=== PATIENT | male | born 1935 | race Caucasian/White ===

== ENCOUNTER 2021-03-18 10:19 | Emergency (ER) | payer MEDICARE ==
[2021-03-18] MEDS ORDERED: HYDROcodone/Acetaminophen 5/325 mg Tablet ONE (11:53)
== END 2021-03-18 12:57 | disposition home or self-care (01) ==
LOC: ERS 10:19
DX: I10 Essential (primary) hypertension (principal); Z87.891 Personal history of nicotine dependence; Z79.82 Long term (current) use of aspirin; Z79.899 Other long term (current) drug therapy
CPT/HCPCS: 72192

== ENCOUNTER 2021-07-17 11:31 | Outpatient (CLI) | payer MEDICARE ==
[2021-07-17 12:41] LABS: Hemoglobin 13.5 g/dL (13.5-17.5); Mean Corpuscular HGB CONC 33.5 g/dL (32.0-36.0); Mean Corpuscular Hemoglobin 32.2 pg (27.0-33.0); Mean Corpuscular Volume 96.2 fl (81.2-95.1); Mean Platelet Volume 9.5 fl (7.4-10.4); Platelet Count 275 10x3/uL (150-450); RBC Distribution Width 12.4 % (11.5-14.5); Red Blood Cell (RBC) Count 4.19 10x6/uL (4.32-5.72); White Blood Cell (WBC) Count 8.4 10x3/uL (3.5-10.5)
[2021-07-17 12:52] LABS: PTT 27.6 sec (22.0-33.0); Prothrombin Time 11.1 sec (9.5-12.1)
[2021-07-17 22:50] LABS: SARS-CoV-2 PCR by NAA Not Detected (NotDetected)
== END 2021-07-17 11:32 | disposition home or self-care (01) ==
LOC: LABBT 11:31
PROVIDERS: ATTEND Neurological Surgery
DX: Z01.818 Encounter for other preprocedural examination (principal); M48.061 Spinal stenosis, lumbar region without neurogenic claudication; Z20.822 Contact with and (suspected) exposure to COVID-19
CPT/HCPCS: 85027; 85610; 85730; 93005; U0003; U0005; 93010

== ENCOUNTER 2021-07-20 10:30 | Inpatient (IN) | payer OTHER, MEDICARE ==
[2021-07-19 12:44] VITALS: BMI 26.6
[2021-07-20] MEDS ORDERED: Neomycin-Polymyxin 1 ML AMP ONE (10:34)
[2021-07-20] MEDS ORDERED: Thrombin 5000 UNITS/5 ML VIAL ONE (10:34)
[2021-07-20] MEDS ORDERED: Bupivacaine PF 0.5% 30 ML VIAL ONE (10:34)
[2021-07-20] MEDS ORDERED: EPINEPHrine 1 MG/ML AMP ONE (10:34)
[2021-07-20] MEDS ORDERED: Fentanyl 100 MCG/2 ML VIAL ONE ×3 (11:56→15:41)
[2021-07-20] MEDS ORDERED: ceFAZolin 2 GM/DEX 5% 100 ML BAG ONE (11:59)
[2021-07-20] MEDS ORDERED: Fentanyl 250 MCG/5 ML VIAL ONE (12:16)
[2021-07-20] MEDS ORDERED: PROPOFOL 200 MG/20 ML VIAL ONE (12:17)
[2021-07-20] MEDS ORDERED: Lidocaine 1% PF 5 ML VIAL ONE (12:17)
[2021-07-20] MEDS ORDERED: Rocuronium Bromide 10 MG/ML (10ML VIAL) ONE (12:17)
[2021-07-20] MEDS ORDERED: Glycopyrrolate 0.2 MG/ML 5 ML SYRINGE ONE (12:17)
[2021-07-20] MEDS ORDERED: PHENYLEPHRINE-NS 100 MCG/ML 10 ML SYRINGE ONE (12:17)
[2021-07-20] MEDS ORDERED: Ondansetron PF 4 MG/2 ML Vial ONE (12:17)
[2021-07-20] MEDS ORDERED: ePHEDrine 50 MG/ML VIAL ONE (12:17)
[2021-07-20] MEDS ORDERED: Dexamethasone 20 MG/5 ML VIAL ONE (12:17)
[2021-07-20] MEDS ORDERED: Rocuronium Bromide 50 MG/5 ML VIAL ONE (12:58)
[2021-07-20] MEDS ORDERED: Promethazine 25 MG TAB PO PRN (15:10)
[2021-07-20] MEDS ORDERED: diphenhydrAMINE 25 MG CAP PO PRN (15:10)
[2021-07-20] MEDS ORDERED: Acetaminophen/Codeine 30-300mg Tablet PO PRN (15:10)
[2021-07-20] MEDS ORDERED: HYDROcodone/Acetaminophen 10/325 mg Tablet PO PRN (15:10)
[2021-07-20] MEDS ORDERED: Ondansetron PF 4 MG/2 ML Vial IVP PRN (15:10)
[2021-07-20] MEDS ORDERED: Milk Of Magnesia 30 ML UDCUP PO PRN (15:10)
[2021-07-20] MEDS ORDERED: HYDROcodone/Acetaminophen 7.5/325 mg Tablet PO PRN (15:10)
[2021-07-20] MEDS ORDERED: Mag-Al 1200 mg/1200 mg/30 ML UDCUP PO PRN (15:10)
[2021-07-20] MEDS ORDERED: Acetaminophen 325 MG TAB PO PRN (15:10)
[2021-07-20] MEDS ORDERED: Bisacodyl 10 MG SUPP PR PRN (15:10)
[2021-07-20] MEDS ORDERED: Promethazine HCl 25 MG/ML VIAL IM PRN (15:24)
[2021-07-20] MEDS ORDERED: Ondansetron HCl/PF 4 MG/2 ML Vial IVP PRN (15:24)
[2021-07-20] MEDS ORDERED: Morphine Sulfate 2 MG/ML SYRINGE SLOW IVP PRN (15:24)
[2021-07-20] MEDS ORDERED: Promethazine HCl 25 MG/ML VIAL IVPB PRN (15:24)
[2021-07-20] MEDS ORDERED: Morphine 4 MG/ML VIAL SLOW IVP PRN (17:17)
[2021-07-20] MEDS: Sodium Chloride 0.9% 1,000 ML IV SCH (20:08)
[2021-07-20] MEDS: CEFAZOLIN 2 GM, Admixture Fee 1 EACH in Sodium Chloride 0.9% 100 ML IVPB SCH (21:37)
[2021-07-20] MEDS: tiZANidine HCl 4 MG TAB PO SCH (21:37)
[2021-07-20] MEDS: Losartan 25 MG TAB PO SCH (21:37)
[2021-07-21] MEDS ORDERED: Sodium Chloride 0.65% Nasal 44 ML BOT EA NARE PRN (00:20)
[2021-07-21] MEDS ORDERED: Cepastat Lozenges 1 LOZ PO PRN (00:21)
[2021-07-21] MEDS ORDERED: Melatonin 3 MG TAB PO SCH ×2 (01:15→21:00)
[2021-07-21] MEDS: CEFAZOLIN 2 GM, Admixture Fee 1 EACH in Sodium Chloride 0.9% 100 ML IVPB SCH (04:19)
[2021-07-21] MEDS: Sodium Chloride 0.9% 1,000 ML IV SCH (04:23)
[2021-07-21] MEDS ORDERED: RUTIN 500 MG PO SCH (09:00)
[2021-07-21] MEDS ORDERED: Multivit, Therapeutic 1 TAB PO SCH (09:00)
[2021-07-21] MEDS ORDERED: [UNRECOGNIZED DRUG - OTHER] PO SCH (09:00)
[2021-07-21] MEDS ORDERED: Non-Formulary Item 1 EACH (Vitamin D3/Vitamin K2 (Mk4) [K2 Plus D3 Tablet] 1 EACH Tablet) PO SCH (09:00)
[2021-07-21] MEDS ORDERED: ASCORBATE CALCIUM PO SCH (09:00)
[2021-07-21] MEDS ORDERED: BIOFLAVONOID PO SCH (09:00)
[2021-07-21] MEDS: Losartan 25 MG TAB PO SCH ×2 (09:56→10:00)
[2021-07-21] MEDS: tiZANidine HCl 4 MG TAB PO SCH ×2 (09:57→15:35)
[2021-07-21 16:08] VITALS: BP 118/60; TEMP 98.5
== END 2021-07-21 14:45 | DRG 517 ==
LOC: SDC 10:30 → SURG A 16:55
PROVIDERS: ADMIT Neurological Surgery; ATTEND Neurological Surgery
PROC: 01NB0ZZ Release Lumbar Nerve, Open Approach (ICD-10-PCS; principal; 2021-07-20)
DX: M48.062 Spinal stenosis, lumbar region with neurogenic claudication (principal); I10 Essential (primary) hypertension; Z85.038 Personal history of other malignant neoplasm of large intestine; S32.038G Other fracture of third lumbar vertebra, subsequent encounter for fracture with delayed healing; V89.0XXD Person injured in unspecified motor-vehicle accident, nontraffic, subsequent encounter
CPT/HCPCS: 76000; J0171; J0690; J1100; J2270; J2405; J2704; J3010; J3370; J3490; S0020

== ENCOUNTER 2021-08-20 19:32 | Inpatient (IN) | payer MEDICARE ==
[2021-08-20] MEDS ORDERED: Vancomycin 1 GM/200 ML BAG ONE (20:08)
[2021-08-20] MEDS ORDERED: Cefepime 2 GM VIAL ONE (20:08)
[2021-08-20 20:24] LABS: #Lymphocytes 0.2 thou/uL (1.20-3.40); #Monocytes 0.1 thou/uL (0.11-0.59); #Neutrophils 9.3 thou/uL (1.40-6.50); %Basophils 0.3 % (0.0-1.0); %Eosinophils 0.3 % (0.0-10.0); %Lymphocytes 1.7 % (21.0-51.0); %Monocytes 0.7 % (0.0-10.0); Hemoglobin 12.2 g/dL (14.0-18.0); Mean Corpuscular HGB CONC 34.6 g/dL (32.0-36.0); Mean Corpuscular Volume 98.2 fL (78.0-98.0); Mean Platelet Volume 6.8 fL (7.4-10.4); Platelet Count 177 thou/uL (130-400); RBC Distribution Width 11.8 % (11.5-14.5); Red Blood Cell (RBC) Count 3.59 mill/uL (4.70-6.10); White Blood Cell (WBC) Count 9.5 thou/uL (4.8-10.8)
[2021-08-20 20:45] LABS: ALT (SGPT) 19 U/L (8-55); AST (SGOT) 28 U/L (5-34); Alkaline Phosphatase 108 U/L (40-110); Anion Gap 15 mmol/L (10-20); BUN (Urea Nitrogen) 16 mg/dL (8.4-25.7); Bilirubin, Total 0.6 mg/dL (0.2-1.2); Calc. Creatinine Clearance 0 mL/min (70-130); Calcium 7.9 mg/dL (7.8-10.44); Carbon Dioxide 19 mmol/L (23-31); Chloride 104 mmol/L (98-107); Globulin 2.3 g/dL (2.4-3.5); Glucose 113 mg/dL (83-110); Potassium 3.8 mmol/L (3.5-5.1); Protein, Total 5.3 g/dL (5.8-8.1); Sodium 134 mmol/L (136-145)
[2021-08-20 20:48] LABS: INR-International Normal Ratio 1.4; PTT 36.2 sec (22.9-36.1); Prothrombin Time 17.1 sec (12.0-14.7)
[2021-08-20] MEDS ORDERED: Aspirin Chewable 81 MG TAB ONE ×2 (20:58)
[2021-08-20 21:06] LABS: CKMB 3.6 ng/mL (0-6.6)
[2021-08-20 21:09] LABS: Bilirubin Negative (Negative); Blood, Urine 3+ (Negative); Clarity Extra Turbid (Clear); Glucose, Urine (Dipstick) Normal (Negative); Ketone, Urine Negative (Negative); Leukocyte 500 Leu/uL (Negative); Nitrite 1+ (Negative); Protein, Urine (Dipstick) 70 mg/dL (Neg-Trace); Specific Gravity, Urine 1.015 (1.002-1.036); Squamous Epithelial None Seen HPF (0-3); Urobilinogen Normal mg/dL (Less than 2)
[2021-08-20 21:19] LABS: WBC/HPF Greater than 50 HPF (0-3)
[2021-08-20 21:21] LABS: Bacteria/HPF 2+ HPF (None Seen)
[2021-08-20 21:22] LABS: Sperm/HPF Rare HPF (None Seen)
[2021-08-20] MEDS ORDERED: Norepinephrine 8 MG in Dextrose 5% in Water 242 ML IVPB PRN (22:45)
[2021-08-20] MEDS ORDERED: Ondansetron PF 4 MG/2 ML Vial ONE (22:59)
[2021-08-20 23:05] LABS: Lactic Acid 2.3 mmol/L (0.5-2.2)
[2021-08-21 00:37] LABS: Troponin I 3.855 ng/mL (< 0.028)
[2021-08-21 01:39] LABS: SARS-CoV-2 NAA Rapid Test Not Detected (NotDetected)
[2021-08-21 02:07] VITALS: BMI 22.8
[2021-08-21] MEDS: Sodium Chloride 0.9% 1,000 ML IV SCH ×3 (02:48→17:58)
[2021-08-21 03:29] LABS: Critical Call Chem Troponin I RESULT DECREASING; Troponin I 3.745 ng/mL (< 0.028)
[2021-08-21] MEDS ORDERED: Acetaminophen 650 MG Suppository PR PRN (06:04)
[2021-08-21] MEDS ORDERED: Ondansetron ODT 4 MG TAB PO PRN (06:04)
[2021-08-21] MEDS ORDERED: Acetaminophen 325 MG TAB PO PRN (06:04)
[2021-08-21] MEDS ORDERED: Vancomycin HCl 1.25 GM in Sodium Chloride 0.9% 250 ML 300 ML IVPB SCH (06:05)
[2021-08-21] MEDS ORDERED: CEFEPIME IVPB PRN (06:41)
[2021-08-21 06:47] LABS: Hemoglobin 11.7 g/dL (14.0-18.0); Mean Corpuscular HGB CONC 33.1 g/dL (32.0-36.0); Mean Corpuscular Hemoglobin 32.6 pg (27.0-31.0); Mean Corpuscular Volume 98.7 fL (78.0-98.0); Mean Platelet Volume 7.3 fL (7.4-10.4); Platelet Count 223 thou/uL (130-400); RBC Distribution Width 11.9 % (11.5-14.5); Red Blood Cell (RBC) Count 3.58 mill/uL (4.70-6.10); White Blood Cell (WBC) Count 25.6 thou/uL (4.8-10.8)
[2021-08-21 06:52] LABS: Lactic Acid 1.7 mmol/L (0.5-2.2)
[2021-08-21 06:54] LABS: Anion Gap 11 mmol/L (10-20); BUN (Urea Nitrogen) 14 mg/dL (8.4-25.7); Calc. Creatinine Clearance 71 mL/min (70-130); Calcium 8.1 mg/dL (7.8-10.44); Carbon Dioxide 21 mmol/L (23-31); Chloride 105 mmol/L (98-107); Glucose 107 mg/dL (83-110); Potassium 3.9 mmol/L (3.5-5.1); Sodium 133 mmol/L (136-145)
[2021-08-21] MEDS ORDERED: Cefepime 2 GM in Sodium Chloride 0.9% 100 ML IVPB SCH (09:00)
[2021-08-21] MEDS: Enoxaparin Sodium 40 MG/0.4 ML SYRINGE SC SCH (09:21)
[2021-08-21 10:11] LABS: Band 47 % (5-11); Lymphocytes 2 % (21-51); MDiff Complete? YES; Metamyelocyte 6 % (0-0); Monocytes 5 % (0-10); Neutrophil 40 % (42-75); Platelet Morphology Comment Appears Adequate; Polychromasia SLIGHT = 2-3 cells (100X) (0-2/hpf)
[2021-08-21] MEDS: Lactated Ringer's 1,000 ML IV SCH ×2 (11:00→14:23)
[2021-08-21] MEDS: Ondansetron PF 4 MG/2 ML Vial IVP PRN ×2 (11:26→22:13)
[2021-08-21] MEDS ORDERED: Meropenem 1 GM in Sodium Chloride 0.9% 100 ML IVPB SCH ×2 (14:45→22:00)
[2021-08-21] MEDS ORDERED: MEROPENEM 1 GM/50 ML 1 GM in Premix Bag 1 BAG IVPB SCH ×2 (14:45→22:00)
[2021-08-21] MEDS: Midodrine HCl 5 MG TAB PO SCH ×2 (15:26→20:49)
[2021-08-21] MEDS ORDERED: Sodium Chloride 0.9% 1,000 ML IV SCH (17:30)
[2021-08-21] MEDS: Cefepime 2 GM in Sodium Chloride 0.9% 100 ML IVPB SCH (20:50)
[2021-08-21] MEDS ORDERED: Vancomycin 1 GM in Premix Bag 1 BAG IVPB SCH (21:00)
[2021-08-22] MEDS: Sodium Chloride 0.9% 1,000 ML IV SCH (03:47)
[2021-08-22 05:56] LABS: Hemoglobin 10.1 g/dL (14.0-18.0); Mean Corpuscular Hemoglobin 32.9 pg (27.0-31.0); Mean Corpuscular Volume 99.7 fL (78.0-98.0); Mean Platelet Volume 7.5 fL (7.4-10.4); Platelet Count 170 thou/uL (130-400); RBC Distribution Width 11.9 % (11.5-14.5); Red Blood Cell (RBC) Count 3.06 mill/uL (4.70-6.10); White Blood Cell (WBC) Count 17.3 thou/uL (4.8-10.8)
[2021-08-22 06:12] LABS: Anion Gap 8 mmol/L (10-20); BUN (Urea Nitrogen) 15 mg/dL (8.4-25.7); Calc. Creatinine Clearance 84 mL/min (70-130); Calcium 7.9 mg/dL (7.8-10.44); Carbon Dioxide 22 mmol/L (23-31); Chloride 104 mmol/L (98-107); Glucose 79 mg/dL (83-110); Potassium 3.6 mmol/L (3.5-5.1); Sodium 130 mmol/L (136-145)
[2021-08-22 06:16] LABS: Band 32 % (5-11); Eosinophils 2 % (0-10); Lymphocytes 6 % (21-51); MDiff Complete? YES; Monocytes 9 % (0-10); Neutrophil 51 % (42-75)
[2021-08-22] MEDS: Enoxaparin Sodium 40 MG/0.4 ML SYRINGE SC SCH (08:46)
[2021-08-22] MEDS: Midodrine HCl 5 MG TAB PO SCH ×3 (08:46→20:25)
[2021-08-22] MEDS: Cefepime 2 GM in Sodium Chloride 0.9% 100 ML IVPB SCH (08:46)
[2021-08-22] MEDS: Losartan 25 MG TAB PO SCH (20:25)
[2021-08-22] MEDS: Artificial Tear Sol 15 ML BOT EA EYE PRN (21:33)
[2021-08-23] MEDS: Enoxaparin Sodium 40 MG/0.4 ML SYRINGE SC SCH (10:14)
[2021-08-23] MEDS: Midodrine HCl 5 MG TAB PO SCH (10:15)
[2021-08-23] MEDS: Losartan 25 MG TAB PO SCH ×2 (10:15→20:05)
[2021-08-23] MEDS: Tamsulosin HCl 0.4 MG CAP PO SCH (10:16)
[2021-08-23 17:34] LABS: Mean Corpuscular HGB CONC 33.6 g/dL (32.0-36.0); Mean Corpuscular Hemoglobin 33.3 pg (27.0-31.0); Mean Corpuscular Volume 99.2 fL (78.0-98.0); Mean Platelet Volume 7.7 fL (7.4-10.4); Platelet Count 197 thou/uL (130-400); RBC Distribution Width 11.9 % (11.5-14.5); White Blood Cell (WBC) Count 13.3 thou/uL (4.8-10.8)
[2021-08-23 17:45] LABS: Anion Gap 10 mmol/L (10-20); BUN (Urea Nitrogen) 8 mg/dL (8.4-25.7); Calc. Creatinine Clearance 83 mL/min (70-130); Calcium 8.4 mg/dL (7.8-10.44); Carbon Dioxide 26 mmol/L (23-31); Chloride 101 mmol/L (98-107); Glucose 102 mg/dL (83-110); Potassium 3.7 mmol/L (3.5-5.1); Sodium 133 mmol/L (136-145)
[2021-08-23] MEDS: Artificial Tear Sol 15 ML BOT EA EYE PRN (20:00)
[2021-08-23 20:31] VITALS: TEMP 98.2
[2021-08-24 05:32] LABS: Hemoglobin 11.6 g/dL (14.0-18.0); Mean Corpuscular Hemoglobin 33.3 pg (27.0-31.0); Mean Corpuscular Volume 97.9 fL (78.0-98.0); Mean Platelet Volume 7.2 fL (7.4-10.4); Platelet Count 213 thou/uL (130-400); RBC Distribution Width 11.8 % (11.5-14.5); Red Blood Cell (RBC) Count 3.49 mill/uL (4.70-6.10); White Blood Cell (WBC) Count 10.3 thou/uL (4.8-10.8)
[2021-08-24 05:53] LABS: Anion Gap 10 mmol/L (10-20); BUN (Urea Nitrogen) 6 mg/dL (8.4-25.7); Calc. Creatinine Clearance 92 mL/min (70-130); Calcium 8.3 mg/dL (7.8-10.44); Carbon Dioxide 25 mmol/L (23-31); Chloride 104 mmol/L (98-107); Glucose 92 mg/dL (83-110); Potassium 3.2 mmol/L (3.5-5.1); Sodium 136 mmol/L (136-145)
[2021-08-24] MEDS ORDERED: Potassium Chloride 20 MEQ TAB PO SCH (08:30)
[2021-08-24 08:33] VITALS: BP 159/85
[2021-08-24] MEDS: Losartan 25 MG TAB PO SCH (08:37)
[2021-08-24] MEDS: Tamsulosin HCl 0.4 MG CAP PO SCH (08:37)
[2021-08-24] MEDS: Enoxaparin Sodium 40 MG/0.4 ML SYRINGE SC SCH (08:38)
== END 2021-08-24 20:40 | DRG 871 ==
LOC: ERS 19:32 → CCU 23:34 → MSONC 08-22 00:03
PROVIDERS: ADMIT Student in an Organized Health Care Education/Training Program; ATTEND Internal Medicine
PROC: 3E033XZ Introduction of Vasopressor into Peripheral Vein, Percutaneous Approach (ICD-10-PCS; principal; 2021-08-20)
PROC: 0T2BX0Z Change Drainage Device in Bladder, External Approach (ICD-10-PCS; 2021-08-22)
DX: A41.51 Sepsis due to Escherichia coli [E. coli] (principal); R65.21 Severe sepsis with septic shock; G93.41 Metabolic encephalopathy; N39.0 Urinary tract infection, site not specified; E87.1 Hypo-osmolality and hyponatremia; I50.22 Chronic systolic (congestive) heart failure; Z20.822 Contact with and (suspected) exposure to COVID-19; D53.9 Nutritional anemia, unspecified; N40.1 Benign prostatic hyperplasia with lower urinary tract symptoms; R33.8 Other retention of urine; I11.0 Hypertensive heart disease with heart failure; I08.1 Rheumatic disorders of both mitral and tricuspid valves; I09.89 Other specified rheumatic heart diseases; Z85.038 Personal history of other malignant neoplasm of large intestine; Z90.49 Acquired absence of other specified parts of digestive tract; Z79.82 Long term (current) use of aspirin; Z79.899 Other long term (current) drug therapy; Z87.891 Personal history of nicotine dependence
CPT/HCPCS: 36415; 36556; 51701; 71045; 80048; 80053; 81003; 81015; 82553; 83605; 84484; 85025; 85027; 85610; 85730; 87040; 87077; 87086; 87149; 87186; 93005; 93306; 94760; 96365; 96366; 96367; 96375; J0692; J1650; J2405; J3370; J3490; J7050; J7120; U0002

== ENCOUNTER 2022-01-17 08:29 | Outpatient (CLI) | payer MEDICARE | END 2022-01-17 08:30 | disposition home or self-care (01) | LOC: TBSIIMAG 08:29 | PROVIDERS: ATTEND Neurological Surgery | DX: M96.1 Postlaminectomy syndrome, not elsewhere classified (principal); M47.816 Spondylosis without myelopathy or radiculopathy, lumbar region; R93.7 Abnormal findings on diagnostic imaging of other parts of musculoskeletal system; Z98.890 Other specified postprocedural states | CPT/HCPCS: 72110; 72158 ==

== ENCOUNTER 2022-03-15 09:38 | Outpatient (CLI) | payer MEDICARE | END 2022-03-15 09:39 | disposition home or self-care (01) | LOC: BICMAMMO 09:38 | PROVIDERS: ATTEND Internal Medicine | DX: Z13.820 Encounter for screening for osteoporosis (principal); M81.0 Age-related osteoporosis without current pathological fracture | CPT/HCPCS: 77080 ==

== ENCOUNTER 2022-03-23 13:16 | Outpatient (CLI) | payer MEDICARE | END 2022-03-23 13:17 | disposition home or self-care (01) | LOC: BICCT 13:16 | PROVIDERS: ATTEND Anesthesiology Pain Medicine | DX: M48.54XA Collapsed vertebra, not elsewhere classified, thoracic region, initial encounter for fracture (principal); M51.34 Other intervertebral disc degeneration, thoracic region | CPT/HCPCS: 72128 ==

== ENCOUNTER 2022-06-27 09:24 | Emergency (ER) | payer MEDICARE ==
[2022-06-27] MEDS ORDERED: Morphine 4 MG/ML VIAL ONE (13:14)
[2022-06-27 16:07] LABS: Bilirubin Negative (Negative); Blood, Urine Negative (Negative); Clarity Clear (Clear); Glucose, Urine (Dipstick) Normal (Negative); Ketone, Urine Negative (Negative); Leukocyte Negative Leu/uL (Negative); Nitrite Negative (Negative); Protein, Urine (Dipstick) Negative (Neg-Trace); Specific Gravity, Urine 1.008 (1.002-1.036); Urobilinogen Normal mg/dL (Less than 2); pH, Urine 6.5 (5.0-9.0)
[2022-06-27 16:24] LABS: #Eosinphils 0.1 thou/uL (0.0-0.7); #Lymphocytes 1.4 thou/uL (1.20-3.40); #Monocytes 0.6 thou/uL (0.11-0.59); #Neutrophils 4.9 thou/uL (1.40-6.50); %Basophils 0.2 % (0.0-1.0); %Eosinophils 1.1 % (0.0-10.0); %Lymphocytes 19.5 % (21.0-51.0); %Monocytes 8.3 % (0.0-10.0); %Neutrophils 70.9 % (42.0-75.0); Hemoglobin 14.3 g/dL (14.0-18.0); Mean Corpuscular HGB CONC 32.6 g/dL (32.0-36.0); Mean Corpuscular Hemoglobin 33.9 pg (27.0-31.0); Mean Platelet Volume 6.4 fL (7.4-10.4); Platelet Count 286 thou/uL (130-400); RBC Distribution Width 11.8 % (11.5-14.5); Red Blood Cell (RBC) Count 4.22 mill/uL (4.70-6.10); White Blood Cell (WBC) Count 6.9 thou/uL (4.8-10.8)
[2022-06-27 16:46] LABS: ALT (SGPT) 9 U/L (8-55); AST (SGOT) 22 U/L (5-34); Albumin 4.1 g/dL (3.4-4.8); Alkaline Phosphatase 82 U/L (40-110); Anion Gap 13 mmol/L (10-20); BUN (Urea Nitrogen) 14 mg/dL (8.4-25.7); Bilirubin, Total 0.5 mg/dL (0.2-1.2); Calc. Creatinine Clearance 0 mL/min (70-130); Calcium 9.6 mg/dL (7.8-10.44); Carbon Dioxide 27 mmol/L (23-31); Chloride 98 mmol/L (98-107); Estimated GFR 87; Globulin 3.4 g/dL (2.4-3.5); Glucose 106 mg/dL (83-110); Potassium 4.6 mmol/L (3.5-5.1); Protein, Total 7.5 g/dL (5.8-8.1); Sodium 133 mmol/L (136-145)
== END 2022-06-27 20:35 | disposition home or self-care (01) ==
LOC: ERS 09:24
DX: S32.059A Unspecified fracture of fifth lumbar vertebra, initial encounter for closed fracture (principal); I10 Essential (primary) hypertension; Z87.891 Personal history of nicotine dependence; Z79.82 Long term (current) use of aspirin; Z79.899 Other long term (current) drug therapy; X58.XXXA Exposure to other specified factors, initial encounter
CPT/HCPCS: 36415; 72131; 72192; 80053; 81003; 85025; 96372; J2270

== ENCOUNTER 2022-08-23 11:01 | Outpatient (CLI) | payer MEDICARE | END 2022-08-23 11:02 | disposition home or self-care (01) | LOC: TBSIIMAG 11:01 | PROVIDERS: ATTEND Neurological Surgery | DX: M47.26 Other spondylosis with radiculopathy, lumbar region (principal); M47.27 Other spondylosis with radiculopathy, lumbosacral region; Z98.890 Other specified postprocedural states | CPT/HCPCS: 72148 ==

== ENCOUNTER 2024-05-29 20:42 | Inpatient (IN) | payer MEDICARE ==
[2024-05-29] MEDS ORDERED: Benzocaine 20% Spray 60 ML CAN ONE (21:06)
[2024-05-29] MEDS ORDERED: cefTRIAXone (ROCEPHIN) 1 GM VIAL ONE (22:09)
[2024-05-29 22:17] LABS: #Basophils Less than 0.03 10x3/uL (0.0-0.2); #Eosinphils Less than 0.03 10x3/uL (0.0-0.7); %Basophils 0.1 % (0.0-1.0); %Monocytes 8.8 % (0.0-10.0); %Neutrophils 87.5 % (42.0-75.0); Hematocrit 29.7 % (42.0-52.0); Mean Corpuscular HGB CONC 33.7 g/dL (32.0-36.0); Mean Corpuscular Hemoglobin 29.9 pg (27.0-31.0); Mean Corpuscular Volume 88.9 fL (78.0-98.0); Mean Platelet Volume 8.9 fL (7.4-10.4); Platelet Count 353 10x3/uL (130-400); RBC Distribution Width 15.7 % (11.5-14.5); Red Blood Cell (RBC) Count 3.34 mill/uL (4.70-6.10)
[2024-05-29 22:34] LABS: ALT (SGPT) 17 U/L (8-55); AST (SGOT) 32 U/L (5-34); Albumin 3.1 g/dL (3.4-4.8); Alkaline Phosphatase 82 U/L (40-110); Anion Gap 18 mmol/L (10-20); BUN (Urea Nitrogen) 52 mg/dL (8.4-25.7); Bilirubin, Total 0.9 mg/dL (0.2-1.2); Calc. Creatinine Clearance 0 mL/min (70-130); Calcium 8.6 mg/dL (7.8-10.44); Carbon Dioxide 26 mmol/L (23-31); Chloride 84 mmol/L (98-107); Estimated GFR 62; Glucose 136 mg/dL (83-110); Lipase 6 U/L (8-78); Potassium 4.9 mmol/L (3.5-5.1); Protein, Total 7.1 g/dL (5.8-8.1); Sodium 123 mmol/L (136-145)
[2024-05-29] MEDS ORDERED: Ondansetron ODT 4 MG TAB PO PRN (22:41)
[2024-05-29] MEDS ORDERED: Ondansetron PF 4 MG/2 ML Vial IVP PRN (22:41)
[2024-05-29] MEDS ORDERED: Ketorolac Tromethamine 30 MG (1 mL) VIAL ONE (23:28)
[2024-05-30] MEDS: Lactated Ringer's 1,000 ML IV SCH ×2 (00:03→09:48)
[2024-05-30 02:12] VITALS: BMI 21.4
[2024-05-30 04:10] LABS: #Basophils Less than 0.03 10x3/uL (0.0-0.2); #Eosinphils Less than 0.03 10x3/uL (0.0-0.7); %Basophils 0.1 % (0.0-1.0); %Monocytes 13.3 % (0.0-10.0); Hematocrit 28.8 % (42.0-52.0); Hemoglobin 9.3 g/dL (14.0-18.0); Mean Corpuscular HGB CONC 32.3 g/dL (32.0-36.0); Mean Corpuscular Hemoglobin 30.5 pg (27.0-31.0); Mean Corpuscular Volume 94.4 fL (78.0-98.0); Platelet Count 315 10x3/uL (130-400); RBC Distribution Width 15.9 % (11.5-14.5); Red Blood Cell (RBC) Count 3.05 mill/uL (4.70-6.10)
[2024-05-30 04:27] LABS: Anion Gap 17 mmol/L (10-20); BUN (Urea Nitrogen) 50 mg/dL (8.4-25.7); Calc. Creatinine Clearance 54 mL/min (70-130); Calcium 8.2 mg/dL (7.8-10.44); Carbon Dioxide 23 mmol/L (23-31); Chloride 89 mmol/L (98-107); Estimated GFR 83; Glucose 124 mg/dL (83-110); Potassium 4.6 mmol/L (3.5-5.1); Sodium 124 mmol/L (136-145)
[2024-05-30] MEDS: cefTRIAXone\\ROCEPHIN 1 GM in Sodium Chloride 0.9% 100 ML IVPB SCH (08:50)
[2024-05-30] MEDS: Enoxaparin 40 MG (0.4 mL) SYRINGE SC SCH (08:51)
[2024-05-30] MEDS: Doxycycline 100 MG CAP PO SCH (08:51)
[2024-05-30] MEDS: Famotidine/PF 20 mg/2ml Vial SLOW IVP SCH (08:52)
[2024-05-30] MEDS: Famotidine 20 MG TAB PO SCH (08:52)
[2024-05-30] MEDS: Sodium Chloride 0.9% 1,000 ML IV SCH (17:54)
[2024-05-30 22:00] LABS: Anion Gap 13 mmol/L (10-20); BUN (Urea Nitrogen) 29 mg/dL (8.4-25.7); Calc. Creatinine Clearance 67 mL/min (70-130); Calcium 7.7 mg/dL (7.8-10.44); Carbon Dioxide 25 mmol/L (23-31); Chloride 94 mmol/L (98-107); Estimated GFR 88; Glucose 106 mg/dL (83-110); Potassium 3.9 mmol/L (3.5-5.1); Sodium 128 mmol/L (136-145)
[2024-05-31] MEDS: Sodium Chloride 0.9% 1,000 ML IV SCH ×2 (00:34→11:30)
[2024-05-31] MEDS: Fleet Saline Enema 133 ML BOT PR SCH (08:29)
[2024-05-31] MEDS: Pantoprazole 40 MG VIAL IVP SCH (08:29)
[2024-05-31 09:08] LABS: #Basophils Less than 0.03 10x3/uL (0.0-0.2); #Eosinphils Less than 0.03 10x3/uL (0.0-0.7); %Basophils 0.1 % (0.0-1.0); %Eosinophils 0.3 % (0.0-10.0); %Lymphocytes 10.9 % (21.0-51.0); %Monocytes 9.4 % (0.0-10.0); %Neutrophils 77.1 % (42.0-75.0); Hemoglobin 8.4 g/dL (14.0-18.0); Mean Corpuscular HGB CONC 32.3 g/dL (32.0-36.0); Mean Corpuscular Hemoglobin 30.7 pg (27.0-31.0); Mean Corpuscular Volume 94.9 fL (78.0-98.0); Mean Platelet Volume 8.9 fL (7.4-10.4); Platelet Count 366 10x3/uL (130-400); RBC Distribution Width 16.1 % (11.5-14.5); Red Blood Cell (RBC) Count 2.74 mill/uL (4.70-6.10)
[2024-05-31 09:23] LABS: Anion Gap 16 mmol/L (10-20); BUN (Urea Nitrogen) 23 mg/dL (8.4-25.7); Calc. Creatinine Clearance 76 mL/min (70-130); Calcium 7.5 mg/dL (7.8-10.44); Carbon Dioxide 20 mmol/L (23-31); Chloride 99 mmol/L (98-107); Estimated GFR 92; Glucose 93 mg/dL (83-110); Potassium 3.5 mmol/L (3.5-5.1); Sodium 131 mmol/L (136-145)
[2024-05-31] MEDS ORDERED: PROPOFOL 20 ML ONE (09:44)
[2024-05-31] MEDS: Acetaminophen 650 MG Suppository PR PRN (13:05)
[2024-05-31 18:31] LABS: Chloride 103 mmol/L (98-107); Potassium 3.5 mmol/L (3.5-5.1); Sodium 132 mmol/L (136-145)
[2024-05-31 18:32] LABS: BUN (Urea Nitrogen) 21 mg/dL (8.4-25.7); Calc. Creatinine Clearance 77 mL/min (70-130); Calcium 7.6 mg/dL (7.8-10.44); Carbon Dioxide 20 mmol/L (23-31); Estimated GFR 92; Glucose 91 mg/dL (83-110)
[2024-05-31 19:40] LABS: Anion Gap 15 mmol/L (10-20)
[2024-06-01] MEDS: Bisacodyl 10 MG SUPP PR SCH (01:00)
[2024-06-01] MEDS: Senokot S 8.6-50 MG TAB PO SCH (09:22)
[2024-06-01] MEDS: Lactulose 20 GM (30 mL) UDCUP PO SCH (09:22)
[2024-06-01 10:41] LABS: Hematocrit 28.9 % (42.0-52.0); Hemoglobin 9.4 g/dL (14.0-18.0); Mean Corpuscular HGB CONC 32.5 g/dL (32.0-36.0); Mean Corpuscular Hemoglobin 30.1 pg (27.0-31.0); Mean Corpuscular Volume 92.6 fL (78.0-98.0); Mean Platelet Volume 8.9 fL (7.4-10.4); Platelet Count 452 10x3/uL (130-400); RBC Distribution Width 16.3 % (11.5-14.5); Red Blood Cell (RBC) Count 3.12 mill/uL (4.70-6.10)
[2024-06-01] MEDS: Polyethylene Glycol 3350 17 GM Packet PO SCH (10:48)
[2024-06-01 11:02] LABS: Anion Gap 16 mmol/L (10-20); BUN (Urea Nitrogen) 15 mg/dL (8.4-25.7); Calc. Creatinine Clearance 83 mL/min (70-130); Carbon Dioxide 20 mmol/L (23-31); Chloride 103 mmol/L (98-107); Estimated GFR 94; Glucose 77 mg/dL (83-110); Potassium 3.5 mmol/L (3.5-5.1); Sodium 135 mmol/L (136-145)
[2024-06-01 11:47] LABS: Band 2 % (5-11); Lymphocytes 6 % (21-51); Monocytes 14 % (0-10); Neutrophil 78 % (42-75); Platelet Adequacy Comment Platelets Normal; RBC Morphology Within Normal Limits
[2024-06-01] MEDS: Acetaminophen 325 MG TAB PO PRN (12:28)
[2024-06-01] MEDS ORDERED: Melatonin 3 MG TAB PO PRN (17:19)
[2024-06-02 08:42] LABS: Hematocrit 26.2 % (42.0-52.0); Hemoglobin 8.5 g/dL (14.0-18.0); Mean Corpuscular HGB CONC 32.4 g/dL (32.0-36.0); Mean Corpuscular Hemoglobin 30.5 pg (27.0-31.0); Mean Corpuscular Volume 93.9 fL (78.0-98.0); Mean Platelet Volume 8.5 fL (7.4-10.4); Platelet Count 418 10x3/uL (130-400); RBC Distribution Width 16.1 % (11.5-14.5); Red Blood Cell (RBC) Count 2.79 mill/uL (4.70-6.10)
[2024-06-02] MEDS: Pantoprazole DR 40 MG TAB PO SCH (08:58)
[2024-06-02] MEDS: Polyethylene Glycol 3350 17 GM Packet PO SCH ×2 (08:58→20:39)
[2024-06-02 09:00] LABS: Anion Gap 10 mmol/L (10-20); BUN (Urea Nitrogen) 12 mg/dL (8.4-25.7); Calc. Creatinine Clearance 83 mL/min (70-130); Calcium 7.6 mg/dL (7.8-10.44); Carbon Dioxide 21 mmol/L (23-31); Chloride 105 mmol/L (98-107); Estimated GFR 94; Glucose 106 mg/dL (83-110); Potassium 3.1 mmol/L (3.5-5.1); Sodium 133 mmol/L (136-145)
[2024-06-02 09:34] LABS: Lymphocytes 8 % (21-51); Monocytes 5 % (0-10); Myelocyte 1 % (0-0); Neutrophil 84 % (42-75); Platelet Adequacy Comment Platelets Normal; Promyelocytes 1 % (0-0); RBC Morphology Within Normal Limits; Reactive Lymphocytes 1 % (0-10)
[2024-06-02] MEDS ORDERED: traMADol HCl 50 MG TAB PO PRN (14:23)
[2024-06-02] MEDS: Potassium Chloride 20 MEQ TAB PO SCH (16:09)
[2024-06-02] MEDS: Acetaminophen 500 MG TAB PO SCH (16:09)
[2024-06-02] MEDS: Methylcellulose 500 MG TAB PO SCH (20:39)
[2024-06-03] MEDS: Aspirin 81 mg Enteric Coated Tablet PO SCH (08:09)
[2024-06-04 21:47] VITALS: BP 161/71; TEMP 97.8
== END 2024-06-04 21:40 | DRG 389 ==
LOC: ERS 20:42 → T4-A 21:56 → OBSVTOIN 05-30 16:24
PROVIDERS: ADMIT Student in an Organized Health Care Education/Training Program; ATTEND Internal Medicine
PROC: 0DJD8ZZ Inspection of Lower Intestinal Tract, Via Natural or Artificial Opening Endoscopic (ICD-10-PCS; principal; 2024-05-31)
DX: K56.609 Unspecified intestinal obstruction, unspecified as to partial versus complete obstruction (principal); E87.1 Hypo-osmolality and hyponatremia; N17.9 Acute kidney failure, unspecified; I13.0 Hypertensive heart and chronic kidney disease with heart failure and stage 1 through stage 4 chronic kidney disease, or unspecified chronic kidney disease; I50.22 Chronic systolic (congestive) heart failure; E87.20 Acidosis, unspecified; N18.2 Chronic kidney disease, stage 2 (mild); E87.8 Other disorders of electrolyte and fluid balance, not elsewhere classified; E88.09 Other disorders of plasma-protein metabolism, not elsewhere classified; K64.4 Residual hemorrhoidal skin tags; K64.8 Other hemorrhoids; E78.5 Hyperlipidemia, unspecified; K59.00 Constipation, unspecified; D63.8 Anemia in other chronic diseases classified elsewhere; N40.0 Benign prostatic hyperplasia without lower urinary tract symptoms; Z79.899 Other long term (current) drug therapy; Z79.82 Long term (current) use of aspirin; Z90.49 Acquired absence of other specified parts of digestive tract
CPT/HCPCS: 36415; 74018; 80048; 83605; 83690; 83880; 83930; 83935; 84300; 84443; 85025; 87040; 96361; 96374; 97139; J0696; J1650; J1885; J2470; J2704; J3490; J7030; J7120